=== PATIENT | male | born 1970 | race Caucasian/White ===

== ENCOUNTER 2024-09-08 21:16 | Emergency (ER) | payer OTHER, SELFPAY ==
[2024-09-08 21:19] VITALS: BP 157/99; PULSE 80; RESP 20; TEMP 36.3; O2SAT 98; BMI 35.9
--- NOTE | 2024-09-08 21:23 | PC.NURSE ---
pt is very uncomfortable in triage, charge account authorizer aware. obtaining bladder scan at this time.
--- NOTE | 2024-09-08 21:35 | PC.NURSE ---
pt bladder scan noted to be >700. pt requesting not to have sweeney placed at this time. per straight cath pt to remove urine. pt tolerated well and reports good relief. pt reports he would like to be discharged after. aware.
--- NOTE | 2024-09-08 21:46 | ED.MALEGU ---
HPI - Male Genitourinary General Chief complaint: Urogenital-Male Stated complaint: unable to void since am Time Seen by Provider: 09/08/24 21:37 Source: patient Mode of arrival: ambulatory Limitations: no limitations History of Present Illness ED Provider: HPI Narrative: Patient's history of enlarged prostate with history of urinary retention taking Flomax missed his dose for 2 days had decreased urination earlier today and unable to urinate and afternoon bladder scan showed urine more than 700 cc no change in medication Related Data Allergies Allergy/AdvReac Type Severity Reaction Status Date / Time No Known Allergies Allergy Verified 09/08/24 21:21 Review of Systems Review of Systems: Yes all other systems are reviewed and are negative [facility] Social History Social History Do you have a plan to hurt others: No Plan Physical Exam Vital Signs: Vital Signs: Last Vital Signs Temp 98.4 F 09/08/24 22:14 Pulse 84 09/08/24 22:14 Resp 17 09/08/24 22:14 BP 125/78 09/08/24 22:14 Pulse Ox 98 09/08/24 22:14 O2 Del Method Room Air 09/08/24 22:14 BMI result Body Mass Index 35.9 Appearance: Alert. Oriented X3. No acute distress. ENT: Pharynx normal. Oral Mucosa moist Neck: Normal inspection. Neck supple. CVS: Normal heart rate and rhythm. Pulses normal. Respiratory: No respiratory distress. Equal air entry bilateral, no wheezing/rales/rhonchi Abdomen: Soft and nontender. Bowel sounds are present, no mass palpable, no CVA tenderness suprapubic fullnes Skin: Skin warm and dry. Normal skin color. Normal skin turgor. Extremities: No lower extremity edema. No calf tenderness Neuro: Oriented X 3. Medications Administered Discontinued Medications Generic Name Dose Route Start Last Admin Trade Name Freq PRN Reason Stop Dose Admin Tamsulosin HCl 0.4 mg 09/08/24 21:49 09/08/24 22:14 Tamsulosin Hcl 0.4 Mg Capsule PO 09/08/24 21:50 0.4 mg ONCE ONE Administration Medical Decision Making Medical Decision Making MDM Narrative: Straight cath was placed and patient has urinated about 700 cc feeling much better now will discharge patient home advised to continue his Flomax Lab Data MDM Lab Attestation statement: I reviewed the patient's lab results. Labs: Lab Results 09/08/24 Range/Units 21:43 Urine Color Yellow Urine Appearance Clear Urine pH 6.0 (5.0-9.0) Ur Specific Bradford 1.025 (1.005-1.025) Urine Protein Negative (Neg-Trace) mg/dL Urine Glucose (UA) Negative (Negative) mg/dL Urine Ketones Negative (Negative) mg/dL Urine Blood Large (3+) H (Negative) Urine Nitrite Negative (Negative) Ur Leukocyte Esterase Negative (Negative) Urine RBC >20 H (0-2) /HPF Urine WBC 0-5 (0-5) /HPF Ur Squamous Epith Cells 0-2 (0-2) /HPF Urine Bacteria None Seen (None Seen) Hyaline Casts 0-2 (0-2) /LPF Discharge Plan Discharge Clinical Impression: Acute retention of urine Patient Disposition: Home, Self-Care Instructions: Urinary Retention in Men (ED), Enlarged Prostate (BPH) (ED) Additional Instructions: Drink plenty of fluids Continue to take your Flomax and follow up with urologist Print Language: Polish
[2024-09-08 21:49] LABS: Appearance Urine Clear; Color Urine Yellow; Glucose Urine UA Negative (Negative); Leukocyte Esterase Urine Negative (Negative); Nitrite Urine Negative (Negative); Specific Gravity - Urine 1.025 (1.005-1.025); UMIC TRIGGER UACC YES; Urine Blood Large (3+) (Negative); Urine Ketones Negative (Negative); Urine Protein Negative (Neg-Trace)
[2024-09-08 21:51] LABS: Bacteria Urine None Seen (None Seen); Hyaline Casts Urine 0-2 /LPF (0-2); RBC Urine >20 /HPF (0-2); Squamous Epithelial Cell Urine 0-2 /HPF (0-2); WBC Urine 0-5 /HPF (0-5)
[2024-09-08 22:14] VITALS: BP 125/78; PULSE 84; RESP 17; TEMP 36.9; O2SAT 98
[2024-09-08] MEDS: Tamsulosin HCL 0.4 MG CAPSULE PO (22:14)
--- NOTE | 2024-09-08 22:15 | PC.NURSE ---
pt straight cath at this time, 800ml yellow urine voided. post cath pt had 40ml in bladder.
[2024-09-08 22:17] VITALS: BP 125/78; PULSE 84; RESP 17; TEMP 36.9; O2SAT 98
--- OUTSIDE RECORDS SUMMARY | 2024-09-08 22:32 | XMS_ITS ---
Author Name [facility] Organization Unknown Results Test Name/Text Value Interpretation Date Range Source Hemoglobin A1C 7%A1C Above high normal [id number] 4.3 - 6.1 [facility] LYME SCREEN 0.03index Normal [id number] - 0.9 [facility] RHEUMATOID FACTOR 48IU/mL Above high normal [id number] 0 - 13 [facility] URIC ACID 7mg/dL Normal [id number] 3.4 - 7 [facility] C REACTIVE PROTEIN <0.30 Normal [id number] 0 - 0.79 [facility] LDL 189mg/dL Above high normal [id number] 0 - 100 [facility] Non-HDL CHOLESTEROL 222mg/dl Above high normal [id number] 0 - 130 [facility] VLDL 33mg/dL Normal [id number] 5 - 40 [facility] CHOL/HDL RATIO 4.[id number] [facility] CHOLESTEROL 280mg/dL Above high normal [id number] 0 - 199 [facility] TRIGLYCERIDES 166mg/dL Above high normal [id number] 0 - 1 50 [facility] HDL 58mg/dL Normal [id number] 40 - 80 [facility] ANION GAP 13 Normal [id number] [facility] CALCULATED OSMO 278mOsm/kg Normal [id number] 253 - 285 [facility] A/G RATIO 2 Normal [id number] 1 - 3 [facility] GLOBULIN 2.5g/dl Normal [id number] 1.4 - 4.8 [facility] BUN/CREAT RATIO 13 Normal [id number] 6 - 25 [facility] egfr 79 Normal [id number] - [facility] GLUCOSE 162mg/dL Above high normal [id number] 65 - 99 [facility] TOTAL BILIRUBIN 0.3mg/dL Normal [id number] 0.1 - 1 [facility] ALKALINE PHOSPHATASE 94U/L Normal [id number] 40 - 130 [facility] CALCIUM 9.4mg/dL Normal [id number] 8.6 - 10.5 [facility] CHLORIDE 103mmol/L Normal [id number] 96 - 108 [facility] BUN 14mg/dL Normal [id number] 6 - 20 [facility] SODIUM 142mmol/L Normal [id number] 133 - 145 [facility] AST 20U/L Normal [id number] 4 - 40 [facility] POTASSIUM 4.6mmol/L Normal [id number] 3.3 - 5.3 [facility] TOTAL PROTEIN 7g/dL Normal [id number] 6.2 - 8.2 [facility] ALBUMIN 4.5g/dl Normal [id number] 3.5 - 5.2 [facility] CREATININE 1.1mg/dL Normal [id number] 0.5 - 1.2 [facility] ALT 33U/L Normal [id number] 4 - 41 [facility] CO2 26mmol/L Normal [id number] 22 - 32 [facility] HEPATITIS C ANTIBODY NON-REACTIVE Normal - [facility] NEUT% 63.7% Normal [id number] [facility] RBC 5M/uL Normal [id number] 4.2 - 6.1 [facility] LYMPH# 1.99K/uL Normal [id number] 0.8 - 4.5 [facility] BASO% 0.7% Normal [id number] [facility] WBC 7.4K/uL Normal [id number] 3.6 - 11 [facility] MCV 85fL Normal [id number] 80 - 100 [facility] NRBC# 0K/uL Normal [facility] MCHC 34g/dl Normal [id number] 31 - 35 [facility] NRBC% 0/100WBC Normal 0 - 1 [facility] HEMOGLOBIN 14.3g/dL Normal [id number] 12.7 - 17.5 [facility] NEUT# 4.71K/uL Normal [id number] 1.5 - 7.8 [facility] MONO# 0.53K/uL Normal [id number] 0.2 - 1 [facility] RDW-CV 12.8% Normal [id number] 12 - 16.1 [facility] HEMATOCRIT 42.5% Normal [id number] 38.5 - 52 [facility] LYMPH% 27% Normal [id number] [facility] MONO% 7.2% Normal [facility] MCH 29pg Normal [id number] 27 - 32 [facility] MPV 10.3fL Normal [id number] 9 - 13 [facility] PLT 359K/uL Normal [id number] 150 - 450 [facility] EOS% 1.1% Normal [id number] [facility] CYCLIC CITRULLINATED PEPTIDE (CCP) AB (IGG) <16 [address] [id number] [facility] GUILLAUME SCREEN, IFA NEGATIVE Normal [id number] - [facility] PSA Free MFr SerPl 14%(calc) Below low normal [id number] 2 5 - [facility] PSA SerPl-mCnc 7.4ng/mL Above high normal [id number] - [facility] PSA Free SerPl-mCnc 1ng/mL Normal [id number] [facility] DBIL <0.2 Normal [id number] 0 - 0.3 [facility] ALKP 90U/L Normal 40 - 130 [facility] TBIL 0.6mg/dL Normal 0.1 - 1 [facility] TP 7g/dL Normal 6.2 - 8.2 [facility] ALB 4.6g/dl Normal 3.5 - 5.2 [facility] AST 45U/L Above high normal 4 - 40 [facility] ALT 92U/L Above high normal 4 - 41 [facility] History of Medication Use Medication Directions Dispensed Refills Start Date End Date [facility] Tadalafil 5 MG Oral Tablet Tadalafil 5 MG Oral Tablettake 1 tablet by mouth daily NEEDED FOR ERECTILE DYSFUNCTION Quantity: 30 Refills: 0 PROFESSOR OF PHILOSOPHY Start : [id number] 09/15/2022 completed gadobutrol (GADAVIST) injection 10 mL 10 mL, Intravenous, Once in imaging, contrast, Starting on Tue04/02/22 at 1121, For 1 dose, Radiology Appointment 04/02/2022 2 completed tadalafil (CIALIS) 5 mg tablet Take 1 tablet (5 mg total) by mouth daily. 03/15/2022 3 active sulfamethoxazole-tr imethoprim (BACTRIM DS,SEPTRA DS) 800-160 MG per tablet Take 1 tablet by mouth daily. TAKE ONE HOUR BEFORE BIOPSY. 10/27/2021 2 aborted rosuvastatin (CRESTOR) 10 MG tablet Take 1 tablet (10 mg total) by mouth daily. 09/18/2021 active Tamsulosin HCl - 0.4 MG Oral Capsule Tamsulosin HCl - 0.4 MG Oral Capsuletake 1 capsule by mouth once daily Quantity: 90 Refills: Charlie Orozco D.O. Start : [id number] 07/29/2021 completed atorvastatin active Flomax active Medication Administration not documented Medication Administration not documented completed OMEprazole (PriLOSEC) 40 MG capsule Take 1 capsule (40 mg total) by mouth every morning before breakfast. active Problems Problem Status Onset Date Problem Type Date of Resolution Source Mixed hyperlipidemia active EncounterDiagnosisA ct HHCCT Mixed hyperlipidemia active 2024-06-12 [address] [facility] Family history of ischemic heart disease active 2024-06-12 ProblemAct [facility] Dyspnea on exertion active 2024-06-12 ProblemAct [facility] Overweight active 2024-06-12 ProblemAct [facility] ARDI O Dizziness active 2024-06-12 Problem[address] [facility] RDI O Immunizations Vaccine Date Source Lot Number Status Tdap (Boostrix) 05/23/2014 [facility] [id number] completed Encounters Encounter Type Encounter Reason Primary Diagnosis Location Date Ambulatory [facility] 08/20/2024 Ambulatory Mixed hyperlipidemia Mixed hyperlipidemia [facility] 08/16/2024 Ambulatory [facility] 07/26/2024 [facility]ulatory [facility] 07/18/2024 [facility] 07/16/2024 [facility] 06/13/2024 [facility]ulatory [facility] 06/12/2024 [facility] 06/12/2024 [facility]ulatory [facility] 06/12/2024 [facility] 06/11/2024 [facility] 06/11/2024 [facility] 06/11/2024 [facility] 06/11/2024 Ambulatory [facility] 06/11/2024 Ambulatory [facility] 06/08/2024 Ambulatory [facility] 06/08/2024 Ambulatory [facility] 06/07/2024 Ambulatory [facility] 06/04/2024 Ambulatory [facility] 06/04/2024 Ambulatory [facility] 05/30/2024 Ambulatory Benign prostatic hyperplasia with lower urinary tract symptoms Benign prostatic hyperplasia with lower urinary tract symptoms [facility] 05/07/2024 Ambulatory [facility] 01/13/2024 Ambulatory [facility] 12/14/2023 Ambulatory [facility] 12/12/2023 Ambulatory [facility] 12/02/2023 Ambulatory [facility] 12/01/2023 Ambulatory Elevated prostate specific antigen (PSA) Elevated prostate specific antigen (PSA) [facility] 03/23/2023 Ambulatory Elevated prostat e specific antigen (PSA) [facility] 09/13/2022 Ambulatory Foreign body in other and multiple parts of external eye, unspecified eye, initial encounter [facility] 04/02/2022 Ambulatory Elevated prostat e specific antigen (PSA) [facility] 04/02/2022 Ambulatory Elevated prostat e specific antigen (PSA) [facility] 03/15/2022 Ambulatory [facility] 11/04/2021 Ambulatory Elevated prostat e specific antigen (PSA) [facility] 11/04/2021 Ambulatory Elevated prostat e specific antigen (PSA) [facility] 11/04/2021 Ambulatory [facility] 11/03/2021 Ambulatory Elevated prostat e specific antigen (PSA) [facility] 10/22/2021 Ambulatory Elevated prostat e specific antigen (PSA) [facility] 10/08/2021 Ambulatory Benign prostatic hyperplasia with lower urinary tract symptoms [facility] 09/08/2021 Ambulatory Benign prostatic hyperplasia with lower urinary tract symptoms [facility] 08/06/2021 Ambulatory Benign prostatic hyperplasia with lower urinary tract symptoms [facility] 08/05/2021 Ambulatory Benign prostatic hyperplasia with lower urinary tract symptoms [facility] 07/31/2021 Care Team Organization Name Specialty Phone Email Start Date End Da te [facility] 08/19/2024 [facility] 07/11/2024 [facility] NO PCP Primary Care 05/08/2024 [facility] 01/30 [facility] Charlie Reeves [facility] 01/23/2024 [facility] 01/03/2024 [facility] 12/01/2023 [facility] 03/04/2023 024 [facility] 01/22/2023 024 [facility] Le[facility] Guerra [facility] 11/03/2022 01/05/2024 [facility] Emily Reeves [facility] 04/02/2022 [facility] 03/03/2022 12/19/2023 [facility] Charlie [facility]eves [facility] 07/31/2021 11/04/2021 [facility] 07/2903/27/2022
--- OUTSIDE RECORDS SUMMARY | 2024-09-08 22:32 | XMS_ITS | Encounter Summary ---
Author Organization [facility] Address [address] [place] [address] Care Team Providers Care Healthcare Associate Name Role Phone Charlie Reeves DO Primary Care Provider [phone] Encounter Details Date Type Department Care Team (Late st Contact Info) Description 11/03/2021 Lab Requisition [facility] COVID-19 Testing Trailer [address] [place] [address] Perico Lynn MD [address] [place] [address] Encounter for laboratory testing for COVID-19 virus Social History Tobacco Use Types Packs/Day Years Used Date Smoking Tobacco: Never Smokeless Tobacco: Never Alcohol Use Standard Drinks/Week Comments Not Currently 0 (1 standard drink = 0.6 oz pur e alcohol) Sex and Gender Information Value Date Recorded Sex Assigned at Not on file Legal Sex Male 2:42 PM EDT Gender Identity Not on file Sexual Orientation Not on file COVID-19 Exposure Response Date Recorded In the last 10 days, have yo u been in contact with someone who was confirmed or suspected to have Coronavirus/COVID-19? No / Unsure 10/22/2021 3:36 PM EDT documented as of this encounter Plan of Treatment Upcoming Encounters Date Type Department Care Team (Late st Contact Info) Description 05/13/2025 11:45 AM EST Office Visit [facility] [address] [phone] Buddy Ibarra MD [address] [place] [address] documented as of this encounter Procedures Procedure Name Priority Date/Time Associated Diagnosis Comments NICOLAS COVID-19 (SARS-COV-2), [facility] (IN-HOUSE) NICOLAS Routine 11/03/2021 1:41 PM EDT Encounter for laboratory testing for COVID-19 virus [ICD-10-CM] documented in this encounter Results * Nicolas COVID-19 (SARS-CoV-2), SANDRA (In-House) (11/03/2021 1:41 PM EDT) SARS CoV 2 Not Detected Not Detected 11/03/2021 5:01 PM EDT [facility] Comment: Negative results do not preclude SARS-CoV-2 (COVID-19)infection and should not be used as the sole basis for treatment or other patient management decisions. The SARS-CoV-2 (Covid-19) Nucleic Acid Amplification Assay is limited to laboratories certified under the Clinical Laboratory Improvement Amendments of 1988 (CLIA), 42 U.S.C. 263a, to perform high complexity tests. Nucleic acid amplication tests include RT-PCR and TMA. This assay has not been FDA cleared or approved, however, this assay has been authorized by the Food and Drug Administration (FDA) under an Emergency Use Authorization (EUA). ??Validation was completed and performance characteristics established by [facility] as per the FDA and CLIA requirement for this EUA. The Aptima SARS-CoV-2 assay Letter of Authorization, along with the authorized Fact Sheet for Healthcare Providers, the authorized Fact Sheet for Patients, and authorized labeling are available on the FDA website: https://www.fda.gov/medical-devices/owlpgfclf-njfowhmlzk-mivgcyz-devices/emergen -us n-pvkmivefgkjwfr-yzqsaxw-devices. Performed at [facility], [place], [place] ??CT License 0385 ??CLIA [id number] Source Nasopharyngeal 11/03/2021 5:01 PM EDT [facility] Microbiology Nasopharyngeal swab / Unknown 11/03/2021 1:41 PM EDT 11/03/2021 1:41 PM EDT us Perico Lynn MD MICROBIOLOGY - GENERAL ORDER FRANCI Final Result [facility] [address] [place] [address] documented in this encounter Visit Diagnoses Diagnosis Encounter for laboratory testing for COVID-19 virus documented in this encounter Care Teams Healthcare Associate Relationship Specialty Start Date End Date Charlie Reeves DO [address] [place] [id number] PCP - General Family Medicine 07/30/21 documented as of this encounter
--- OUTSIDE RECORDS SUMMARY | 2024-09-08 22:32 | XMS_ITS | Encounter Summary ---
Author Organization [facility] Address [address] [place] [address] Care Team Providers Care Director Business Travel Name Role Phone Charlie Reeves DO Primary Care Provider + Charlie Reeves DO Unavailable [phone]- [phone] Reason for Visit * Reason Comments E-prescribing Refill Request Encounter Details Date Type Department Care Team (Late st Contact Info) Description 02/26/[address] [phone] Charlie Reeves DO [address] [place], [place] [address] E-prescribing Refill Request Social History Tobacco Use Types Packs/Day Years Used Date Smoking Tobacco: Never Assessed Comments:Smoking Status:No c urrent tobacco use PHQ-2 Answer Date Recorded PHQ-2 Score 0 12/01/2023 Sex and Gender Information Value Date Recorded Sex Assigned at Male 12/01/2023 11:13 AM EDT Legal Sex Male 4:26 PM EDT Gender Identity Male 12/01/2023 11:13 AM EDT Sexual Orientation Straight 12/01/2023 11 :13 AM EDT documented as of this encounter Plan of Treatment Upcoming Encounters Date Type Department Care Team (Late st Contact Info) Description 09/17/2024 8:30 AM EDT Office Visit [address] [phone] Charlie Reeves DO [address] [place] [address] Return in about 3 months (around 09/04/2024) for f/u chronic conditions 12/03/2024 10:00 AM EDT Office Visit [facility] [address] [place] [address] Charlie Reeves DO [address] [place] [address] 6 month f/u chronic conds documented as of this encounter Visit Diagnoses Diagnosis Urinary retention with incomplete bladder emptying Incomplete bladder emptying Hyperlipidemia, unspecified hyperlipidemia type documented in this encounter Care Teams Director Business Travel Relationship Specialty Start Date End Date Charlie Reeves DO [address] [place] [address] PCP - General 12/06/22 Charlie Reeves DO [address] [place] [address] PCP - Backup PCP Family Medicine 06/01/23 documented as of this encounter
--- OUTSIDE RECORDS SUMMARY | 2024-09-08 22:32 | XMS_ITS | Encounter Summary ---
Author Organization [facility] Address [address] [place] [address] Care Team Providers Care Art Editor Name Role Phone Charlie Reeves DO Primary Care Provider + Charlie Reeves DO Unavailable +- [phone] Encounter Details Date Type Department Care Team (Late st Contact Info) Description 01/17/2024 Orders Only [address] [phone] Charlie Reeves DO [address] [place], [place] [phone] Social History Tobacco Use Types Packs/Day Years [...] Description 09/17/2024 8:30 AM EDT Office Visit [address] [phone] Charlie Reeves DO [address] [place], [place] [phone] Return in about 3 months (around 09/04/2024) for f/u chronic conditions 12/03/2024 10:00 AM EDT Office Visit [facility] [address] [place] [address] Charlie Reeves DO [address] [place], [place] [address] 6 month f/u chronic conds documented as of this encounter Visit Diagnoses Diagnosis Elevated liver enzymes Nonspecific elevation of levels of transaminase or lactic acid dehydrogenase (LDH) Hyperlipidemia, unspecified hyperlipidemia type documented in this encounter Care Teams Art Editor Relationship Specialty Start Date End Date Charlie Reeves DO [address] [place] [address] PCP - General 12/06/22 Charlie Reeves DO [address] [place] [address] PCP - Backup PCP Family Medicine 06/01/23 documented as of this encounter
--- OUTSIDE RECORDS SUMMARY | 2024-09-08 22:32 | XMS_ITS | Encounter Summary ---
Author Organization [facility] Address [address] [place] [address] Care Team Providers Care Trouble Tracer Name Role Phone Charlie Reeves DO Primary Care Provider + Charlie Reeves DO Unavailable [phone]- [phone] Reason for Visit * Reason Comments E-prescribing Refill Request Encounter Details Date Type Department Care Team (Late st Contact Info) Description 12/02/[address] [phone] Charlie Reeves DO [address] [place], [place] [address] E-prescribing Refill Request Social History Tobacco Use [...] Description 09/17/2024 8:30 AM EDT Office Visit [address] [phone] Charlie Reeves DO [address] [place] [address] Return in about 3 months (around 09/04/2024) for f/u chronic conditions 12/03/2024 10:00 AM EDT Office Visit [facility] [address] [place] [address] Charlie Reeves DO [address] [place] [address] 6 month f/u chronic conds documented as of this encounter Visit Diagnoses Diagnosis Hyperlipidemia, unspecified hyperlipidemia type documented in this encounter Care Teams Trouble Tracer Relationship Specialty Start Date End Date Charlie Reeves DO [address] [place] [address] PCP - General 12/06/22 Charlie Reeves DO [address] [place] [address] PCP - Backup PCP Family Medicine 06/01/23 documented as of this encounter
--- OUTSIDE RECORDS SUMMARY | 2024-09-08 22:32 | XMS_ITS | Clinical Summary ---
Author Organization [facility] Address [address] [place] [address] Phone Care Team Providers Care Radio Television Technical Director Name Role Phone Charlie Reeves DO Primary Care Provider + Encounters Date Type Department Care Team Description 06/13/2024 Telephone Rheumatology at [address] [place], [place] [phone] No, Pcp (Do Not Change Name) Other 06/13/2024 Transcribed Orders [facility]TERNAL REFERRAL SOURCE [address] [place] [id number] Charlie Reeves DO Rheumatoid factor positive (Primary Dx); Arthralgia, unspecified joint; Pain in both hands from Last 3 Months Social History Tobacco Use Types Packs/Day Years Used Date Smoking Tobacco: Never Assessed Sex and Gender Information Value Date Recorded Sex Assigned at Not on file Legal Sex Male 5:56 AM EST Gender Identity Not on file Sexual Orientation Not on file Plan of Treatment Health Maintenance Due Date Last Done Comments HIV screening 1981 Lipid disorder screening 2008 Colon cancer screening, Colonoscopy 2013 Diabetes screening 2013 Pneumococcal Vaccine (50+ ye ars) (1 of 1 - PCV) 2018 Shingles vaccine (Shingrix) (1 of 2 - Shingrix (RZV) 2 Dose Standard Series) 2018 Covid-19 vaccine series ( - season) 2024 Tetanus adult (Td q 10,TDAP once) 05/23/2024 015 Influenza vaccine 12/31/2024 RSV Immunization (1 - 1-dose 75+ series) 07/07/2043 Hepatitis C screening Completed 06/13/2024 Meningococcal Vaccine Aged Out No aida nilam eligible based on patient's age to complete this topic Insurance [employer] NA CIGNA Care Teams Radio Television Technical Director Relationship Specialty Start Date End Date Charlie Reeves DO [address] [place] [phone] PCP - General Family Medicine 06/13/24
--- OUTSIDE RECORDS SUMMARY | 2024-09-08 22:32 | XMS_ITS | Encounter Summary ---
Author Organization [facility] Address [address] [place] [address] Care Team Providers Care Grain Scooper Name Role Phone Charlie Reeves DO Primary Care Provider +1- [phone] Encounter Details Date Type Department Care Team (Late st Contact Info) Description 03/26/[address] [address] Buddy Ibarra MD [facility] [place], [place] [address] Social History Tobacco Use Types Packs/Day Years Used Date Smoking Tobacco: Never Smokeless Tobacco: Never Alcohol Use Standard Drinks/Week Comments Not Currently 0 (1 standard drink = 0.6 oz pur e alcohol) Sex and Gender Information Value Date Recorded Sex Assigned at Not on file Legal Sex Male 2:42 PM EDT Gender Identity Not on file Sexual Orientation Not on file documented as of this encounter Miscellaneous Notes * Telephone Encounter - Desire Henson - 03/26/2024 10:01 AM EST Spoke with , rescheduled patient to 05/07/24. documented in this encounter Plan of Treatment Upcoming Encounters Date Type Department Care Team (Late st Contact Info) Description 05/13/2025 11:45 AM EST Office Visit [facility] Urologic Surgery [address] [address] Buddy Ibarra MD [address] [place] [phone] documented as of this encounter Visit Diagnoses Not on filedocumented in this encounter Care Teams Grain Scooper Relationship Specialty Start Date End Date Charlie Reeves DO [address] [place] [id number] PCP - General Family Medicine 07/30/21 documented as of this encounter
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
--- OUTSIDE RECORDS SUMMARY | 2024-09-08 22:32 | XMS_ITS | Clinical Summary ---
Author Organization [facility] Address [address] [place] [address] Care Team Providers Care Under Cutting Machine Operator Name Role Phone Charlie Reeves Primary Care Provider +1- [phone] Allergies No known active allergies Medications OMEprazole (PriLOSEC) 40 MG capsule Take 1 capsule (40 mg total) by mouth every morning before breakfast. Active rosuvastatin (CRESTOR) 10 MG tablet Take 1 tablet (10 mg total) by mouth daily. 09/18/2021 Active tamsulosin (FLOMAX) 0.4 MG capsuleIndicatio ns:Benign prostatic hyperplasia with urinary retention take 1 capsule by mouth once daily 30 capsule 11 03/26/2024 Active tadalafil (CIALIS) 5 mg tabletIndication s:Benign prostatic hyperplasia with urinary retention take 1 tablet by mouth once daily 30 tablet 11 07/04/2024 Active Active Problems No known active problems Encounters Date Type Department Care Team Description 08/16/2024 9:31 AM EDT - 08/16/2024 11:59 PM EDT Hospital Encounter [facility] Rad[facility] [address] [place] [address] Yara Ayala MD Mixed hyperlipidemia Discharge Disposition: Home or Self Care 08/16/2024 Travel 07/03/2024 Refill [facility] Urologic Surgery [address] [place] [phone] Buddy Ibarra MD Benign prostatic hyperplasia with urinary retention (Primary Dx) 06/13/2024 Scanned Document GENERIC EXTERNAL DATA DEPARTMENT Yara Ayala MD 06/13/2024 Scanned Document [facility] [address] [facility] [address] [place] [address] Primary Care, Scan from Last 3 Months Family History Medical History Relation Name Comments Diabetes Father Stroke Father No Known Problems Mother Relation Name Status Comments Father Mother Alive Social History Tobacco Use Types Packs/Day Years Used Date Smoking Tobacco: Never Smokeless Tobacco: Never Tobacco Cessation:Counseling Given: Not Answered Alcohol Use Standard Drinks/Week Comments Not Currently 0 (1 standard drink = 0.6 oz pur e alcohol) Sex and Gender Information Value Date Recorded Sex Assigned at Not on file Legal Sex Male 2:42 PM EDT Gender Identity Not on file Sexual Orientation Not on file Last Filed Vital Signs Vital Sign Reading Time Taken Comments Blood Pressure 147/95 07/31/2021 1:43 PM EDT Pulse 93 07/31/2021 1:43 PM EDT Temperature 36.8 ??C (98.3 ??F) 07/31/2021 1:43 PM ED T Respiratory Rate 20 07/31/2021 1:43 PM EDT Oxygen Saturation 97% 07/31/2021 1:43 PM EDT Inhaled Oxygen Concentration - - Weight 80.7 kg (178 lb) 05/07/2024 2:07 PM EST Height 180.3 cm (5' 11 ) 10/08/2021 9:14 AM EDT Body Mass Index 24.83 10/08/2021 9:14 AM EDT Plan of Treatment Upcoming Encounters Date Type Department Care Team (Late st Contact Info) Description 05/13/2025 11:45 AM EST Office Visit [facility] Urologic Surgery [address] [place] [phone] Buddy Ibarra MD [address] [place] [address] Health Maintenance Due Date Last Done Comments Hepatitis C Virus Screening 1968 HIV Screening 1981 DTaP/Tdap/Td Vaccines (1 - Tdap) 07/07/1987 Hepatitis B Vaccines (1 of 3 - 19+ 3-dose series) 10/1987 Colonoscopy 2013 Pneumococcal Vaccines 50+ (1 of 1 - PCV) 2018 Zoster (Shingles) Vaccine (1 of 2) 2018 COVID-19 Vaccine ( season) 2024 Influenza Vaccine 11/30/2024 Procedures Procedure Name Priority Date/Time Associated Diagnosis Comments CT HEART W/SCORING W/O CONTRAST Routine 08/16/2024 10:11 AM EDT Mixed hyperlipidemia HX OUTSIDE ORDER 06/13/2024 from Last 3 Months Results * CT Heart w/scoring w/o contrast (08/16/2024 10:11 AM EDT) Anatomical Region Laterality Modality Heart Computed Tomogra phy 08/16/2024 3:55 PM EDT Impressions 08/17/2024 6:50 AM EDT Total coronary artery calcium score is 0. SCORE ? CV RISK ?RECOMMENDATION 0 ? Very Low ? Statin generally not recommended 1-99 ?Mild Increase ? Consider moderate intensity statin 100-299 ? Moderate Increase ?Consider mod to high intensity statin+ASA >300 ? Moderate to Severe ?? Consider high intensity statin+ASA Source: Coronary Artery Calcium Data and Reporting System. An expert consensus document of the Society of Cardiovascular Computed Tomography (SCCT) 2018 NOTE: The risk and recommendation summary above is for asymptomatic individuals. Patient's with signs/symptoms may undergo additional evaluation/management as clinically appropriate. Signed by: Blane Ulrich MD Narrative 08/17/2024 6:[address] HEART W/SCORING W/O CONTRAST: 08/16/2024 9:43 AM CLINICAL HISTORY: mixed hyperlipidemia. Mixed hyperlipidemia. TECHNIQUE: Multiple non-contrast, EKG gated images were obtained through the heart utilizing coronary artery calcium scoring technique. ?? Note: Iterative reconstruction technique was employed to reduce patient radiation exposure. CT CORONARY ARTERIAL CALCIUM CALCIUM SCORE (CAC): Total calcium score = 0 using the AJ-130 method. LMain = 0, LAD = 0, LCX = 0, RCA = 0, PDA = 0, RAMUS (if applicable) = 0, DIAGS = 0, MARGINALS = 0, PLB = 0. SOURCE IMAGES: Review of source images reveals no additional significant findings. Procedure Note Blane Ulrich MD - 08/17/2024 CT HEART W/SCORING W/O CONTRAST: 08/16/2024 9:43 AM CLINICAL HISTORY: mixed hyperlipidemia. Mixed hyperlipidemia. TECHNIQUE: Multiple non-contrast, EKG gated images were obtained throughthe heart utilizing coronary artery calcium scoring technique. Note: Iterative reconstruction technique was employed to reduce patientradiation exposure. CT CORONARY ARTERIAL CALCIUM CALCIUM SCORE (CAC): Total calcium score = 0 using the AJ-130 method. LMain = 0, LAD = 0, LCX = 0, RCA = 0, PDA = 0, RAMUS (if applicable) = 0,DIAGS = 0, MARGINALS = 0, PLB = 0. SOURCE IMAGES: Review of source images reveals no additional significantfindings. IMPRESSION: Total coronary artery calcium score is 0. SCORE CV RISK RECOMMENDATION 0 Very Low Statin generally notrecommended 1-99 Mild Increase Consider moderate intensity statin 100-299 Moderate Increase Consider mod to high intensitystatin+ASA >300 Moderate to Severe Consider high intensity statin+ASA Source: Coronary Artery Calcium Data and Reporting System. An expertconsensus document of the Society of Cardiovascular Computed Tomography(SCCT) 2018 NOTE: The risk and recommendation summary above is for asymptomaticindividuals. Patient's with signs/symptoms may undergo additionalevaluation/management as clinically appropriate. Signed by: Blane Ulrich MD us Yara Ayala MD IMG CT ORDERABLES Final Res ult * OUTSIDE ORDER (06/13/2024) us Scan Primary Care HX AMB PROCEDURES Final Result from Last 3 Months Insurance [facility] [employer] Care Teams Under Cutting Machine Operator Relationship Specialty Start Date End Date Charlie Reeves DO [address] [place] [phone] PCP - General Family Medicine 07/30/21
--- OUTSIDE RECORDS SUMMARY | 2024-09-08 22:32 | XMS_ITS | Encounter Summary ---
Author Organization [facility] Address [address] [place] [address] Care Team Providers Care Tagman Name Role Phone Alfonso Edmond MD Primary Care Provider [phone] Charlie Reeves DO Primary Care Provider [phone] Encounter Details Date Type Department Care Team (Late st Contact Info) Description 12/07/2018 Scanned Document [facility] [address] [place] [phone] Julian Booker MD [address] [facility] [address] [place] [address] Social History Tobacco Use Types Packs/Day Years Used Date Smoking Tobacco: Never Alcohol Use Standard Drinks/Week Comments Not Asked 0 (1 standard drink = 0.6 oz pur e alcohol) Sex and Gender Information Value Date Recorded Sex Assigned at Not on file Legal Sex Male 2:42 PM EDT Gender Identity Not on file Sexual Orientation Not on file documented as of this encounter Plan of Treatment Upcoming Encounters Date Type Department Care Team (Late st Contact Info) Description 05/13/2025 11:45 AM EST Office Visit [facility] Urologic Surgery [address] [place] [address] Buddy Ibarra MD [address] [place] [address] documented as of this encounter Visit Diagnoses Not on filedocumented in this encounter Care Teams Tagman Relationship Specialty Start Date End Date Alfonso Edmond MD [address] [place] [address] PCP - General Internal Medicine 11/06/18 07/29/21 Charlie Reeves DO [address], [place] [id number] PCP - General Family Medicine 07/30/21 documented as of this encounter
--- OUTSIDE RECORDS SUMMARY | 2024-09-08 22:32 | XMS_ITS | Encounter Summary ---
Author Organization [facility] Address [address] [place] [address] Care Team Providers Care Firing Pin Gauger Name Role Phone Charlie Reeves DO Primary Care Provider + [phone] Encounter Details Date Type Department Care Team (Late st Contact Info) Description 06/13/2024 Scanned Document GENERIC EXTERNAL DATA DEPARTMENT Yara Ayala MD [address] [facility] [address] [place] [address] Social History Tobacco Use Types Packs/Day Years [...] Encounters Date Type Department Care Team (Late Contact Info) Description 05/13/2025 11:45 AM EST Office Visit [facility] Urologic Surgery [address] [place] [phone] Buddy Ibarra MD [address] [place] [phone] documented as of this encounter Visit Diagnoses Not on filedocumented in this encounter Care Teams Firing Pin Gauger Relationship Specialty Start Date End Date Charlie Reeves DO [address] [place] [id number] PCP - General Family Medicine 07/30/21 documented as of this encounter
--- OUTSIDE RECORDS SUMMARY | 2024-09-08 22:32 | XMS_ITS | Encounter Summary ---
Author Organization [facility] Address [address] [place] [address] Care Team Providers Care Warm In Name Role Phone Charlie Reeves DO Primary Care Provider [phone] Encounter Details Date Type Department Care Team (Late st Contact Info) Description 06/13/2024 Scanned Document [facility] [address] [facility] [address] [place] [phone] Primary Care, Scan Social History Tobacco Use Types Packs/Day Years [...] 11:45 AM EST Office Visit [facility] Urologic Surgery [address] [phone] Buddy Ibarra MD [address] [place] [address] documented as of this encounter Procedures Procedure Name Priority Date/Time Associated Diagnosis Comments HX OUTSIDE ORDER 06/13/2024 documented in this encounter Results * OUTSIDE ORDER (06/13/2024) us Scan Primary Care HX AMB PROCEDURES Final Result documented in this encounter Visit Diagnoses Not on filedocumented in this encounter Care Teams Warm In Relationship Specialty Start Date End Date Charlie Reeves DO [address] [place] [id number] PCP - General Family Medicine 07/30/21 documented as of this encounter
== END 2024-09-08 22:32 | disposition home or self-care (01) ==
LOC: HO.ED 22:30
PROVIDERS: Emergency Provider Internal Medicine
DX: R33.9 Retention of urine, unspecified (principal)
CPT/HCPCS: 51701; 81001; 99283; 99285